=== PATIENT | female | born 1995 | race Caucasian/White ===

== ENCOUNTER 2025-06-13 18:16 | Emergency (ER) | payer OTHER ==
[~2025-06-13] VITALS: Ht 170.2 cm; Wt 106.8 kg
[2025-06-13 19:23] LABS: BASO # 0.0 10^3/uL (0.0-0.2); BASO % 0.4 % (0.0-1.0); EOS # 0.2 10^3/uL (0.0-0.5); EOS % 2.4 % (0.0-3.0); LYMPH # 2.3 10^3/uL (1.5-5.0); LYMPH % 30.4 % (24.0-44.0); MONO # 0.7 10^3/uL (0.0-0.8); MONO % 9.9 % (2.0-8.0); NEUTROPHILS # 4.2 10^3/uL (1.5-8.5); NEUTROPHILS % 56.8 % (36.0-66.0); PLATELET COUNT, AUTOMATED 274 10^3/uL (150-450)
[2025-06-13 19:50] LABS: ALT/SGPT 22 U/L (7.0-40); AST/SGOT 26 U/L (<34); CALCIUM LEVEL 8.6 MG/DL (8.5-10.1); CARBON DIOXIDE LEVEL 23 MMOL/L (20-31); CHLORIDE LEVEL 108 MMOL/L (98-107); CREATININE FOR GFR 0.70 MG/DL (0.55-1.30); GLOMERULAR FILTRATION RATE > 90.0 (>60); POTASSIUM SERUM 3.5 MMOL/L (3.5-5.1); SODIUM LEVEL 140 MMOL/L (136-145)
[2025-06-13 19:51] LABS: HCG, SERUM QUALITATIVE NEGATIVE (NEGATIVE)
[2025-06-13] MEDS ORDERED: ISOVUE-370 76% 100 ML VIAL As Ordered ONE (20:21)
[2025-06-13 21:44] LABS: KETONE, URINE AUTO RFX TRACE mg/dL (NEGATIVE); NITRITE, URINE AUTO RFX NEGATIVE (NEGATIVE); RBC, URINE AUTO RFX 2 /HPF (0-3); SQUAM EPITHELIAL CELL UR AURFX 3 /HPF (0-6); WBC, URINE AUTO RFX 7 /HPF (0-3)
[2025-06-13 21:45] VITALS: BP 112/65; O2SAT 97
[2025-06-13 21:45] LABS: LEUKOCYTE ESTERASE UR AUTO RFX TRACE (NEGATIVE)
[2025-06-13] MEDS ORDERED: SULF-7 PO (21:53)
[2025-06-13] MEDS: BACTRIM 160MG/800MG DS TAB PO ONE (22:02)
[2025-06-13 22:05] VITALS: TEMP 97.9
== END 2025-06-13 22:09 | disposition home or self-care (01) ==
LOC: M ED 18:16
DX: N10 Acute pyelonephritis (principal); Z88.1 Allergy status to other antibiotic agents; Z88.8 Allergy status to other drugs, medicaments and biological substances; K21.9 Gastro-esophageal reflux disease without esophagitis
CPT/HCPCS: 36415; 74177; 80053; 81001; 83605; 83690; 84703; 85025; 87088; 87186; 99284; Q9967